=== PATIENT | female | born 1995 | race Two or more races ===

== ENCOUNTER 2022-12-15 14:15 | Inpatient (IN) | payer OTHER ==
[~2022-12-15] VITALS: Ht 154.9 cm; Wt 3.2 kg
[2022-12-20] MEDS ORDERED: PRENATAL CAPLE1 EAC1 PO (10:38)
[2022-12-23] MEDS ORDERED: OXYC1TAB9 PO (07:42)
[2022-12-23] MEDS ORDERED: KETO10TA2 PO (07:42)
== END 2022-12-23 12:46 | disposition home or self-care (01) | DRG 788 ==
LOC: EDUNIT# 14:15 → LDR 12-20 09:45 → OB/GYN 12-20 10:47 → LDR 12-20 12:31 → OB/GYN 12-20 23:43
PROVIDERS: ADMIT Obstetrics & Gynecology Maternal & Fetal Medicine; ATTEND Obstetrics & Gynecology Maternal & Fetal Medicine
PROC: 4A1HXCZ Monitoring of Products of Conception, Cardiac Rate, External Approach (ICD-10-PCS; 2022-12-20)
PROC: 10D00Z1 Extraction of Products of Conception, Low, Open Approach (ICD-10-PCS; principal; 2022-12-21)
DX: O62.1 Secondary uterine inertia (principal); O33.8 Maternal care for disproportion of other origin; O64.0XX0 Obstructed labor due to incomplete rotation of fetal head, not applicable or unspecified; Z3A.39 39 weeks gestation of pregnancy; Z37.0 Single live birth